=== PATIENT | male | born 1995 | race African-American/Black ===

== ENCOUNTER → 2020-12-17 | Outpatient (CLI) | payer OTHER ==
--- NOTE | 2020-12-17 12:08 | 2DMMODE ---
"[facility] [address] [address] [address] 2 D/M-MODE ECHOCARDIOGRAM Name: BERTO BRAR Room #: REG [facility]#: [id number] Admission: 12/17/20 Attend Phys: Seth Eason MD Discharge: Date of : 89 Report #: [id number] THIS REPORT FOR: cc: FAM - Family physician unknown FAM - Family physician unknown Arcenio Lyon MD [facility] ~ APPROVED REPORT Study performed: 12/17/2020 11:13:58 EXAM: Comprehensive 2D, Doppler, and color-flow Echocardiogram Patient Location: Out-Patient Status: routine BSA: 1.69 HR: 57 bpm BP: 120/80 mmHg Rhythm: NSR Other Information Study Quality: Good Indications Heart disease unspecified. Hx: palpitations, chest pressure. 2D Dimensions RVDd: 38.23 mm IVSd: 8.07 (7-11mm) LVOT Diam: 19.34 (18-24mm) LVDd: 47.01 mm PWd: 7.69 (7-11mm) Ascending Ao: 24.73 (22-36mm) LVDs: 33.74 (25-40mm) Left Atrium: 27.16 (27-40mm) Aortic Root: 27.28 mm Volumes Left Atrial Volume (Systole) Single Plane 4CH: 25.68 mL Single Plane 2CH: 31.32 mL LA ESV Index: 18.00 mL/m2 Aortic Valve AoV Peak Jorge.: 1.39 m/s AO Peak Gr.: 7.72 mmHg LVOT Max P.53 mmHg LVOT Max V: 1.06 m/s [facility] [address] [place] [address] 2 D/M-MODE ECHOCARDIOGRAM Name: BERTO BRAR Room #: REG CL [facility]#: [id number] Admission: 12/17/20 Attend Phys: Seth Eason MD Discharge: Date of : 89 Report #: [id number] MELANY Vmax: 2.25 cm2 Mitral Valve E/A Ratio: 1.8 MV Decel. Time: 180.18 ms MV E Max Jorge.: 0.85 m/s MV A Jorge.: 0.48 m/s MV PHT: 52.25 ms IVRT: 92.27 ms Pulmonary Valve PV Peak Jorge.: 0.95 m/s PV Peak Gr.: 3.61 mmHg Pulmonary Vein P Vein S: 0.40 m/s P Vein A: 0.23 m/s P Vein D: 0.68 m/s P Vein A Dur.: 110.7 msec P Vein S/D Ratio: 0.59 Tricuspid Valve TR Peak Jorge.: 2.29 m/s RAP Estimate: 5.00 mmHg TR Peak Gr.: 21.00 mmHg PA Pressure: 26.00 mmHg Left Ventricle The left ventricle is normal size. There is normal LV segmental wall motion. There is normal left ventricular wall thickness. Left ventricular systolic function is normal. LVEF is 55%. The left ventricular diastolic function is normal. Right Ventricle The right ventricle is normal size. The right ventricular systolic function is normal. Atria The left atrium size is normal. The right atrium size is normal. Aortic Valve The aortic valve is normal in structure. No aortic regurgitation is present. There is no aortic valvular stenosis. Mitral Valve The mitral valve is normal in structure. There is no mitral valve regurgitation noted. No evidence of mitral valve stenosis. Tricuspid Valve [facility] [address] [address] 2 D/M-MODE ECHOCARDIOGRAM Name: BERTO BRAR GABBY Room #: REG [facility]#: [id number] Admission: 12/17/20 Attend Phys: Seth Eason MD Discharge: Date of : 89 Report #: [id number] The tricuspid valve is normal in structure. Mild tricuspid regurgitation. Estimated PAP is 26mmHg. Pulmonic Valve The pulmonary valve is normal in structure. Mild pulmonic regurgitation. Great Vessels The aortic root is normal in size. The ascending aorta is normal in size. IVC is normal in size and collapses >50% with inspiration. Pericardium There is no pericardial effusion. <Conclusion> Normal left ventricular size/function Ejection fraction 55% Normal right ventricular size/function Normal atrial size Color-flow Doppler study performed on the aortic/mitral/tricuspid/pulmonary valve Normal aortic/mitral valve structure and function Mild tricuspid valve insufficiency Pulmonary systolic pressure estimated 26 mmHg Normal aortic root size No pericardial effusion <ELECTRONICALLY SIGNED> By: Arcenio Lyon MD, FACC 12/17/201207 07 07 Arcenio Lyon MD, FACC /INF"
== END ==
LOC: CV 10:58
PROVIDERS: ATTEND Orthopaedic Surgery
DX: I07.1 Rheumatic tricuspid insufficiency (principal); M17.12 Unilateral primary osteoarthritis, left knee